=== PATIENT | female | born 1980 | race Caucasian/White ===

== ENCOUNTER 2021-02-02 10:04 | Emergency (ER) | payer SELFPAY | END 2021-02-02 11:06 | disposition home or self-care (01) | LOC: CSHERS 10:04 | DX: J18.9 Pneumonia, unspecified organism (principal); F17.210 Nicotine dependence, cigarettes, uncomplicated; R00.0 Tachycardia, unspecified | CPT/HCPCS: 99283 ==

== ENCOUNTER 2021-06-19 13:33 | Inpatient (IN) | payer SELFPAY ==
[2021-06-19 15:10] VITALS: BMI 26.2
[2021-06-19] MEDS ORDERED: Ondansetron PF 4 MG/2 ML Vial IVP PRN (16:37)
[2021-06-19] MEDS ORDERED: hydrOXYzine 25 MG TAB PO PRN (16:43)
[2021-06-19] MEDS: Morphine 4 MG/ML VIAL SLOW IVP PRN ×2 (17:17→23:13)
[2021-06-19] MEDS: Lactated Ringer's 1,000 ML IV SCH (17:18)
[2021-06-19] MEDS: traMADol HCl 50 MG TAB PO PRN (20:30)
[2021-06-19] MEDS: Famotidine 20 MG TAB PO SCH (22:26)
[2021-06-19] MEDS: busPIRone HCl 15 MG TAB PO SCH (22:26)
[2021-06-19] MEDS: Nicotine 14 MG PATCH TD SCH (23:07)
[2021-06-19] MEDS: Zolpidem Tartrate 5 MG TAB PO PRN (23:09)
[2021-06-20] MEDS: traMADol HCl 50 MG TAB PO PRN ×2 (02:44→06:39)
[2021-06-20] MEDS: Lactated Ringer's 1,000 ML IV SCH ×4 (04:21→22:25)
[2021-06-20] MEDS ORDERED: HYDROcodone/Acetaminophen 5/325 mg Tablet PO PRN (08:14)
[2021-06-20] MEDS: busPIRone HCl 15 MG TAB PO SCH ×2 (09:33→21:00)
[2021-06-20] MEDS: Ibuprofen 800 MG TAB PO SCH ×2 (09:33→18:04)
[2021-06-20] MEDS: Famotidine 20 MG TAB PO SCH ×2 (09:33→21:00)
[2021-06-20] MEDS: diphenhydrAMINE 25 MG CAP PO PRN ×3 (09:33→18:07)
[2021-06-20] MEDS: HYDROcodone/Acetaminophen 5/325 mg Tablet PO PRN ×4 (09:34→22:24)
[2021-06-20] MEDS: Nicotine 14 MG PATCH TD SCH (18:01)
[2021-06-20] MEDS: Zolpidem Tartrate 5 MG TAB PO PRN (22:27)
[2021-06-21] MEDS: Ibuprofen 800 MG TAB PO SCH ×2 (00:17→09:02)
[2021-06-21 07:54] VITALS: BP 152/83; TEMP 98.8
[2021-06-21] MEDS: diphenhydrAMINE 25 MG CAP PO PRN (09:02)
[2021-06-21] MEDS: busPIRone HCl 15 MG TAB PO SCH (09:02)
[2021-06-21] MEDS: Famotidine 20 MG TAB PO SCH (09:02)
[2021-06-21] MEDS: HYDROcodone/Acetaminophen 5/325 mg Tablet PO PRN (09:03)
[2021-06-21] MEDS: Lactated Ringer's 1,000 ML IV SCH (09:05)
== END 2021-06-21 09:20 | disposition home or self-care (01) | DRG 761 ==
LOC: CSHPP 13:33 → CSHPED 14:46
PROVIDERS: ADMIT Obstetrics & Gynecology; ATTEND Obstetrics & Gynecology
DX: N83.202 Unspecified ovarian cyst, left side (principal); F41.9 Anxiety disorder, unspecified; F32.A Depression, unspecified; Z90.711 Acquired absence of uterus with remaining cervical stump; Z90.49 Acquired absence of other specified parts of digestive tract; Z90.89 Acquired absence of other organs; F17.210 Nicotine dependence, cigarettes, uncomplicated; Z88.6 Allergy status to analgesic agent; Z88.0 Allergy status to penicillin; Z79.899 Other long term (current) drug therapy
CPT/HCPCS: J2270; J7120